=== PATIENT | female | born 1985 | race Caucasian/White ===

== ENCOUNTER 2022-01-16 08:57 | Emergency (ER) | payer BC ==
[~2022-01-16] VITALS: Ht 165.1 cm; Wt 68.5 kg
[2022-01-16] MEDS ORDERED: SYMBICORT 80/10.2 GM IH (09:17)
[2022-01-16] MEDS ORDERED: CLARITIN10 M1 PO (09:18)
== END 2022-01-16 11:17 | disposition home or self-care (01) ==
LOC: ER 08:57
DX: M43.6 Torticollis (principal); Z91.013 Allergy to seafood